=== PATIENT | female | born 1950 | race Caucasian/White ===

== ENCOUNTER 2021-07-17 10:57 | Inpatient (IN) | payer MEDICARE ==
[~2021-07-17] VITALS: Ht 158 cm; Wt 90.0 kg
[2021-07-17 12:39] LABS: BASOPHIL 0 % (0-2); EOSINOPHIL 0 % (0-7); HCT 34.1 % (37.0-47.0); HGB 11.9 g/dl (12.5-16.0); LYMPHOCYTE 28.9 % (15-48); MCH 37.1 pg (25.0-31.0); MCHC 34.9 g/dL (32.0-36.0); MCV 106.2 fL (78.0-100.0); MONOCYTE 7.5 % (0-12); MPV 9.9 fL (6.0-9.5); NRBC 0; RBC 3.21 M/uL (4.20-5.40); RDW 15.3 % (11.5-14.0)
[2021-07-17 12:51] LABS: MAGNESIUM 2.1 mg/dL (1.8-2.4)
[2021-07-17 12:54] LABS: ALBUMIN 3.2 g/dL (3.4-5.0); CREATININE 1.16 mg/dL (0.51-0.95); GLOBULIN (CALCULATION) 3.5 g/dL; POTASSIUM 4.4 mmol/L (3.5-5.1); TOTAL PROTEIN 6.7 g/dL (6.4-8.2)
[2021-07-17 12:57] LABS: PLT 73 K/uL (150-400); WBC 1.7 K/uL (4.0-10.5)
[2021-07-17] MEDS ORDERED: ELIQUIS5 MG PO (17:21)
[2021-07-17] MEDS ORDERED: COREG12.5 MG PO (17:24)
[2021-07-17] MEDS ORDERED: ANASTROZOLE1 MG PO (17:25)
[2021-07-17] MEDS ORDERED: LIPITOR 10MG TA10 MG PO (17:26)
[2021-07-17 18:26] LABS: BILIRUBIN NEGATIVE (NEGATIVE); BLOOD TRACE-INTACT Ery/uL (NEGATIVE); COLOR YELLOW (YELLOW); GLUCOSE (U) NORMAL (NORMAL); LEUKOCYTES TRACE Leu/uL (NEGATIVE); NITRITE POSITIVE (NEGATIVE); PROTEIN NEGATIVE (NEGATIVE); SPECIFIC GRAVITY 1.015 (1.001-1.030); pH 5.5 (5.0-9.0)
[2021-07-17 18:30] LABS: CLARITY SLIGHTLY HAZY (CLEAR)
[2021-07-17 18:35] LABS: BACTERIA 3+; URINARY WBC 20-50
[2021-07-18 07:00] LABS: INR 1.17 (0.9-1.2); PROTHROMBIN TIME 14.3 SECONDS (11.8-13.4)
[2021-07-18 15:22] LABS: BASOPHIL 0.5 % (0-2); EOSINOPHIL 0.5 % (0-7); HCT 33.6 % (37.0-47.0); HGB 11.2 g/dl (12.5-16.0); LYMPHOCYTE 29.3 % (15-48); MCH 37.1 pg (25.0-31.0); MCHC 33.3 g/dL (32.0-36.0); MONOCYTE 8.8 % (0-12); MPV 10.5 fL (6.0-9.5); NEUTROPHIL 60.9 % (41-80); NRBC 0; PLT 77 K/uL (150-400); RBC 3.02 M/uL (4.20-5.40); RDW 15.9 % (11.5-14.0); WBC 2.1 K/uL (4.0-10.5)
[2021-07-18 15:24] LABS: MCV 111.3 fL (78.0-100.0)
[2021-07-18 15:26] LABS: ALBUMIN 3.3 g/dL (3.4-5.0); BILIRUBIN - TOTAL 0.9 mg/dL (0.2-1.0); BUN/CREAT RATIO (CALC) 27.6 RATIO; CREATININE 1.05 mg/dL (0.51-0.95); GLOBULIN (CALCULATION) 2.9 g/dL; POTASSIUM 4.3 mmol/L (3.5-5.1); TOTAL PROTEIN 6.2 g/dL (6.4-8.2)
--- NOTE | 2021-07-18 17:48 | NUR ---
ORDER ENTERED FOR NG TUBE THIS MORNING AFTER PATIENT SEEN BY DR GRIFFITHS AND HE SPOKE WITH DR OWEN. THIS RN SPOKE WITH DR OWEN ABOUT PATIENT'S HISTORY OF BARIATRIC SURGERY AND RISKS INVOLVED WITH NG TUBE INSERTION. CALLED DR GRIFFITHS TO DISCUSS CONCERNS AND IT WAS AGREED NG TUBE TO BE PLACED UNDER GUIDED FLUOROSCOPY. PATIENT WAS TAKEN DOWN TO RADIOLOGY FOR INSERTION OF NG TUBE AND GASTROGAFFIN STUDY. UPON RETURN TO ROOM, PATIENT STATED SHE WAS HAVING INCREASED PAIN AND INITIALLY DECLINED PAIN MEDICATION BUT SHORTLY AFTER DECIDED TO TAKE PRN MORPHINE AND ZOFRAN. PATIENT VOMITED ONCE IMMEDIATELY AFTER RECEIVING MORPHINE, EMESIS WAS 100ML. PATIENT RESTED FOR A BIT AFTER RECEIVING MORPHINE. AT 1500, RADIOLOGY HERE TO TAKE LAST FOLLOW THROUGH PICTURES FOR GASTROGAFFIN STUDY. DR GRIFFITHS CALLED SOON AFTER TO INFORM RN TO HOOK NG TUBE TO LIWS IN ONE HOUR. AT 1520, PATIENT VOMITED 200ML OF BROWN LIQUID. RN CALLED DR GRIFFITHS AND WAS ADVISED TO GO AHEAD AND HOOK NG TUBE TO SUCTION. RN ATTACHED SUCTION TO NG TUBE AND PATIENT HAD IMMEDIATE OUTPUT OF 1000ML OF BROWN, FOUL SMELLING LIQUID. PATIENT REPORTED IMMEDIATE RELIEF FROM PAIN AND NAUSEA.
[2021-07-19 04:39] LABS: BASOPHIL 0 % (0-2); EOSINOPHIL 0 % (0-7); HCT 33.8 % (37.0-47.0); HGB 11.4 g/dl (12.5-16.0); LYMPHOCYTE 22.6 % (15-48); MCHC 33.7 g/dL (32.0-36.0); MCV 109.7 fL (78.0-100.0); MONOCYTE 9.4 % (0-12); MPV 10.2 fL (6.0-9.5); NEUTROPHIL 67.5 % (41-80); NRBC 0; RBC 3.08 M/uL (4.20-5.40); RDW 15.6 % (11.5-14.0)
[2021-07-19 04:41] LABS: WBC 2.1 K/uL (4.0-10.5)
[2021-07-19 04:42] LABS: PLT 78 K/uL (150-400)
[2021-07-19 04:46] LABS: ALBUMIN 3.1 g/dL (3.4-5.0); BILIRUBIN - TOTAL 0.7 mg/dL (0.2-1.0); CREATININE 1.06 mg/dL (0.51-0.95); GLOBULIN (CALCULATION) 3.2 g/dL; POTASSIUM 4.1 mmol/L (3.5-5.1); TOTAL PROTEIN 6.3 g/dL (6.4-8.2)
[2021-07-19 16:19] LABS: BILIRUBIN NEGATIVE (NEGATIVE); BLOOD NEGATIVE Ery/uL (NEGATIVE); CLARITY CLEAR (CLEAR); COLOR YELLOW (YELLOW); GLUCOSE (U) NORMAL (NORMAL); LEUKOCYTES 1+ Leu/uL (NEGATIVE); NITRITE POSITIVE (NEGATIVE); PROTEIN NEGATIVE (NEGATIVE); SPECIFIC GRAVITY 1.025 (1.001-1.030); UROBILINOGEN 0.2 mg/dL (0.2-1.0); pH 5.5 (5.0-9.0)
[2021-07-19 17:01] LABS: BACTERIA 1+
[2021-07-20 04:57] LABS: BASOPHIL 0.5 % (0-2); EOSINOPHIL 0 % (0-7); HCT 35.6 % (37.0-47.0); HGB 12.1 g/dl (12.5-16.0); LYMPHOCYTE 28.5 % (15-48); MCH 37.2 pg (25.0-31.0); MCV 109.5 fL (78.0-100.0); MPV 10.3 fL (6.0-9.5); NRBC 1.1; RBC 3.25 M/uL (4.20-5.40); RDW 15.3 % (11.5-14.0)
[2021-07-20 04:59] LABS: NEUTROPHIL 63.5 % (41-80); PLT 87 K/uL (150-400); WBC 1.9 K/uL (4.0-10.5)
[2021-07-20 05:14] LABS: ALBUMIN 2.7 g/dL (3.4-5.0); BILIRUBIN - TOTAL 0.7 mg/dL (0.2-1.0); BUN/CREAT RATIO (CALC) 28.8 RATIO; CREATININE 1.56 mg/dL (0.51-0.95); GLOBULIN (CALCULATION) 3.3 g/dL
--- NOTE | 2021-07-21 11:40 | NUR ---
PATIENT ON ELIQUIS AT HOME, HAS HX AFIB, FAMILY ALSO SHARED WITH ME SHE HAS HAD A CARDIAC ABLATION, BLOOD CLOTS IN THE ARM AND LEGS, AND WE NOTED GASTRIC SLEEVE YESTERDAY. INFORMED
[2021-07-21 13:12] LABS: EOSINOPHIL 0 % (0-7); HCT 32.8 % (37.0-47.0); HGB 10.8 g/dl (12.5-16.0); LYMPHOCYTE 18.3 % (15-48); MCH 36.2 pg (25.0-31.0); MCHC 32.9 g/dL (32.0-36.0); MCV 110.1 fL (78.0-100.0); MONOCYTE 4.8 % (0-12); MPV 10.1 fL (6.0-9.5); NEUTROPHIL 74.9 % (41-80); NRBC 1.4; PLT 101 K/uL (150-400); RBC 2.98 M/uL (4.20-5.40); RDW 15.5 % (11.5-14.0); WBC 2.9 K/uL (4.0-10.5)
[2021-07-21 13:27] LABS: ALBUMIN 2.3 g/dL (3.4-5.0); BILIRUBIN - TOTAL 0.9 mg/dL (0.2-1.0); BUN/CREAT RATIO (CALC) 30.9 RATIO; CREATININE 1.39 mg/dL (0.51-0.95); GLOBULIN (CALCULATION) 3.7 g/dL; POTASSIUM 3.7 mmol/L (3.5-5.1)
[2021-07-21 16:21] LABS: BILIRUBIN NEGATIVE (NEGATIVE); BLOOD 2+ Ery/uL (NEGATIVE); CLARITY CLEAR (CLEAR); COLOR YELLOW (YELLOW); GLUCOSE (U) NORMAL (NORMAL); LEUKOCYTES TRACE Leu/uL (NEGATIVE); NITRITE NEGATIVE (NEGATIVE); PROTEIN 2+ mg/dL (NEGATIVE); SPECIFIC GRAVITY 1.025 (1.001-1.030); pH 5.5 (5.0-9.0)
[2021-07-21 16:27] LABS: AMORPHOUS URATES CRYSTALS MODERATE; BACTERIA 1+; MUCOUS TRACE
[2021-07-22 05:01] LABS: BASOPHIL 0.4 % (0-2); EOSINOPHIL 0 % (0-7); HCT 27.3 % (37.0-47.0); HGB 9.1 g/dl (12.5-16.0); LYMPHOCYTE 22.1 % (15-48); MCH 36.4 pg (25.0-31.0); MCHC 33.3 g/dL (32.0-36.0); MCV 109.2 fL (78.0-100.0); MONOCYTE 6.4 % (0-12); MPV 9.3 fL (6.0-9.5); NRBC 0; RDW 15.4 % (11.5-14.0); WBC 2.4 K/uL (4.0-10.5)
[2021-07-22 05:03] LABS: NEUTROPHIL 70.7 % (41-80); PLT 81 K/uL (150-400)
[2021-07-22 05:18] LABS: ALBUMIN 1.9 g/dL (3.4-5.0); BUN/CREAT RATIO (CALC) 33.9 RATIO; CREATININE 1.12 mg/dL (0.51-0.95); GLOBULIN (CALCULATION) 3.3 g/dL; POTASSIUM 3.3 mmol/L (3.5-5.1); TOTAL PROTEIN 5.2 g/dL (6.4-8.2)
[2021-07-22 14:49] LABS: BUN/CREAT RATIO (CALC) 33.3 RATIO; CREATININE 0.99 mg/dL (0.51-0.95); POTASSIUM 3.1 mmol/L (3.5-5.1)
[2021-07-23 04:18] LABS: BASOPHIL 0.5 % (0-2); EOSINOPHIL 0.5 % (0-7); HCT 24.7 % (37.0-47.0); HGB 8.3 g/dl (12.5-16.0); LYMPHOCYTE 30.4 % (15-48); MCH 36.9 pg (25.0-31.0); MCHC 33.6 g/dL (32.0-36.0); MCV 109.8 fL (78.0-100.0); MPV 9.7 fL (6.0-9.5); NRBC 0; RBC 2.25 M/uL (4.20-5.40); RDW 15.1 % (11.5-14.0)
[2021-07-23 04:23] LABS: PLT 67 K/uL (150-400); WBC 1.8 K/uL (4.0-10.5)
[2021-07-23 04:33] LABS: ALBUMIN 1.7 g/dL (3.4-5.0); BUN/CREAT RATIO (CALC) 27.8 RATIO; CREATININE 0.97 mg/dL (0.51-0.95); GLOBULIN (CALCULATION) 3.4 g/dL; MAGNESIUM 1.9 mg/dL (1.8-2.4); POTASSIUM 3.9 mmol/L (3.5-5.1); TOTAL PROTEIN 5.1 g/dL (6.4-8.2)
[2021-07-23 18:30] LABS: BASOPHIL 0.5 % (0-2); EOSINOPHIL 0 % (0-7); HCT 23.3 % (37.0-47.0); HGB 7.7 g/dl (12.5-16.0); LYMPHOCYTE 29.9 % (15-48); MCH 36.2 pg (25.0-31.0); MCV 109.4 fL (78.0-100.0); MONOCYTE 5.1 % (0-12); MPV 9.7 fL (6.0-9.5); NEUTROPHIL 55.4 % (41-80); RBC 2.13 M/uL (4.20-5.40); RDW 15.3 % (11.5-14.0)
[2021-07-23 18:31] LABS: PLT 65 K/uL (150-400)
[2021-07-24 04:43] LABS: BASOPHIL 0.9 % (0-2); EOSINOPHIL 0.4 % (0-7); HCT 29.5 % (37.0-47.0); HGB 9.9 g/dl (12.5-16.0); LYMPHOCYTE 28.2 % (15-48); MCH 34.4 pg (25.0-31.0); MCHC 33.6 g/dL (32.0-36.0); MONOCYTE 6.2 % (0-12); MPV 11.1 fL (6.0-9.5); NEUTROPHIL 61.7 % (41-80); NRBC 0; PLT 56 K/uL (150-400); RBC 2.88 M/uL (4.20-5.40); RDW 18.4 % (11.5-14.0)
[2021-07-24 04:45] LABS: MCV 102.4 fL (78.0-100.0); WBC 2.3 K/uL (4.0-10.5)
[2021-07-24 04:59] LABS: MAGNESIUM 1.7 mg/dL (1.8-2.4); POTASSIUM 3.4 mmol/L (3.5-5.1)
--- NOTE | 2021-07-24 11:27 | NUR ---
PATIENT SITTING ON SIDE OF BED WITH AIDE WHEN SHE WENT TO LEAN BACK TO REPOSITION, HER HEAD WENT BACK FARTHER THAN SHE EXPECTED AND SHE HIT THE BACK OF HER HEAD ON THE BEDSIDE TABLE, SISTER AT BEDSIDE, PATIENT DENIES ANY DISCOMFORT ON TACTILE EXAM, NO BLOOD OR NODULES NOTED. VS BEING DONE AND CHARTED,
[2021-07-25 13:40] LABS: HCT 27.1 % (37.0-47.0); HGB 9.2 g/dl (12.5-16.0); MCH 34.5 pg (25.0-31.0); MCHC 33.9 g/dL (32.0-36.0); MCV 101.5 fL (78.0-100.0); MPV 10.9 fL (6.0-9.5); RBC 2.67 M/uL (4.20-5.40); RDW 18.2 % (11.5-14.0); WBC 2.9 K/uL (4.0-10.5)
[2021-07-25 14:00] LABS: BUN/CREAT RATIO (CALC) 17.6 RATIO; CREATININE 0.85 mg/dL (0.51-0.95); MAGNESIUM 1.8 mg/dL (1.8-2.4); POTASSIUM 2.9 mmol/L (3.5-5.1)
[2021-07-26 05:06] LABS: BASOPHIL 0.7 % (0-2); EOSINOPHIL 0.7 % (0-7); HCT 25.5 % (37.0-47.0); HGB 8.6 g/dl (12.5-16.0); LYMPHOCYTE 17.2 % (15-48); MCH 34.5 pg (25.0-31.0); MCHC 33.7 g/dL (32.0-36.0); MCV 102.4 fL (78.0-100.0); MONOCYTE 6.1 % (0-12); MPV 10.7 fL (6.0-9.5); NEUTROPHIL 68.2 % (41-80); RBC 2.49 M/uL (4.20-5.40); RDW 17.6 % (11.5-14.0)
[2021-07-26 05:15] LABS: BUN/CREAT RATIO (CALC) 17.3 RATIO; CREATININE 0.75 mg/dL (0.51-0.95); MAGNESIUM 1.8 mg/dL (1.8-2.4); PHOSPHORUS 2.1 mg/dL (2.6-4.7); POTASSIUM 3.7 mmol/L (3.5-5.1)
[2021-07-26 06:09] LABS: PLT 50 K/uL (150-400)
[2021-07-26 06:10] LABS: EOSINOPHIL(M) 2 % (0-7); LYMPHOCYTE(M) 28 % (15-48); METAMYELOCYTE 6; MONOCYTE(M) 8 % (0-12); NEUTROPHILS(M) 56 % (41-80); PLATELET ESTIMATE DECREASED; PLATELET MORPHOLOGY NORMAL; TOTAL CELL COUNT 50
[2021-07-26] MEDS ORDERED: LEVAQUIN750 MG PO (15:45)
[2021-07-26] MEDS ORDERED: NYSTATIN SUSP1 ML/ML SSP (16:34)
== END 2021-07-26 17:20 | disposition home or self-care (01) | DRG 329 ==
LOC: FER 10:57 → EDBD 10:57 → FMS 14:52
PROVIDERS: Emergency Medicine; Internal Medicine; Surgery; ADMIT Family Medicine
PROC: 0DB80ZZ Excision of Small Intestine, Open Approach (ICD-10-PCS; principal; 2021-07-19 13:30)
PROC: 0WQF0ZZ Repair Abdominal Wall, Open Approach (ICD-10-PCS; 2021-07-19 13:30)
PROC: 30233N1 Transfusion of Nonautologous Red Blood Cells into Peripheral Vein, Percutaneous Approach (ICD-10-PCS; 2021-07-23)
PROC: 30233N1 Transfusion of Nonautologous Red Blood Cells into Peripheral Vein, Percutaneous Approach (ICD-10-PCS; 2021-07-24)
DX: K56.600 Partial intestinal obstruction, unspecified as to cause (principal); G92 Toxic encephalopathy; K55.019 Acute (reversible) ischemia of small intestine, extent unspecified; N17.9 Acute kidney failure, unspecified; E87.1 Hypo-osmolality and hyponatremia; D61.818 Other pancytopenia; N30.00 Acute cystitis without hematuria; E87.0 Hyperosmolality and hypernatremia; I48.20 Chronic atrial fibrillation, unspecified; D62 Acute posthemorrhagic anemia; J98.11 Atelectasis; R18.8 Other ascites; Z20.822 Contact with and (suspected) exposure to COVID-19; K56.7 Ileus, unspecified; I10 Essential (primary) hypertension; E87.6 Hypokalemia; E83.42 Hypomagnesemia; E86.1 Hypovolemia; B96.1 Klebsiella pneumoniae [K. pneumoniae] as the cause of diseases classified elsewhere; E78.5 Hyperlipidemia, unspecified; K42.9 Umbilical hernia without obstruction or gangrene; D46.9 Myelodysplastic syndrome, unspecified; Z85.3 Personal history of malignant neoplasm of breast; Z92.3 Personal history of irradiation; Z92.21 Personal history of antineoplastic chemotherapy; Z90.13 Acquired absence of bilateral breasts and nipples; Z80.3 Family history of malignant neoplasm of breast; Z80.0 Family history of malignant neoplasm of digestive organs; Z90.710 Acquired absence of both cervix and uterus; Z98.890 Other specified postprocedural states; Z98.84 Bariatric surgery status; Z79.01 Long term (current) use of anticoagulants; Z79.899 Other long term (current) drug therapy
CPT/HCPCS: 36415; 36430; 71045; 74018; 74250; 80048; 80053; 81001; 82607; 83605; 83690; 83735; 83880; 84100; 84145; 84484; 85025; 85610; 86850; 86900; 86901; 86922; 87045; 87046; 87076; 87088; 87186; 87205; 87449; 88305; 93005; 94010; 97162; 97166; 97530-GP; 97535; C1765; C9113; J0360; J0694; J0696; J1100; J1170; J1642; J1644; J2250; J2270; J2370; J2405; J2704; J2710; J3010; J3475; J3480; J7030; J7120; P9016; Q9967; U0002